=== PATIENT | female | born 1990 | race Caucasian/White ===

== ENCOUNTER 2019-01-27 21:57 | Inpatient (IN) | payer BC ==
[2019-01-27] MEDS ORDERED: Methylergonovine 0.2 MG/1 ML Amp IM PRN (22:19)
[2019-01-27] MEDS ORDERED: Nalbuphine 10 MG/1 ML Vial IVPUSH PRN (22:19)
[2019-01-27] MEDS ORDERED: Misoprostol 200 MCG Tab PO PRN (22:19)
[2019-01-27] MEDS ORDERED: Tranexamic Acid 1,000 MG in Sodium Chloride 0.9% 100 ML IV PRN (22:19)
[2019-01-27] MEDS ORDERED: Sodium Chloride 0.9% 10 ML Syringe FLUSH PRN (22:19)
[2019-01-27] MEDS ORDERED: Carboprost Tromethamine 250 MCG/1 ML Amp IM PRN (22:19)
[2019-01-27] MEDS ORDERED: Lidocaine 1% 50 ML MDV INJECT PRN (22:19)
[2019-01-27] MEDS ORDERED: Sodium Chloride 0.9% 2.5 ML Syringe FLUSH PRN (22:19)
[2019-01-27] MEDS ORDERED: Sodium Chloride 0.9% 10 ML SDV IV PRN (22:19)
[2019-01-27] MEDS ORDERED: Water For Irrigation,Sterile 1,000 ML Container IRR PRN (22:19)
[2019-01-27] MEDS ORDERED: Ondansetron 4 MG/2 ML SDV IV PRN (22:19)
[2019-01-27] MEDS ORDERED: Butorphanol 1 MG/ML SDV IVPUSH PRN (22:19)
[2019-01-27] MEDS ORDERED: Oxytocin/0.9 % Sodium Chloride 30 UNIT/500 ML BAG IV SCH (22:30)
[2019-01-27] MEDS ORDERED: Lactated Ringers 1,000 ML IV SCH (22:30)
[2019-01-27] MEDS ORDERED: Ropivacaine HCl/PF 100 ML ONE (22:49)
--- NOTE | 2019-01-27 23:14 | PCM.PREANE ---
Preanesthetic Assessment - Anesthesia/Transfusion/Family Hx Anesthesia History: Prior Anesthesia Without Reaction Family History of Anesthesia Reaction: No - Review of Systems General: No Symptoms Pulmonary: No Symptoms Cardiovascular: No Symptoms Gastrointestinal: No Symptoms Neurological: No Symptoms Other: Reports: None - Physical Assessment ASA Class: 1 - Lab Values: Laboratory Last Values WBC 18.64 K/uL (4.0-11.0) H 01/27/19 22:32 RBC 4.36 M/uL (4.30-5.90) 01/27/19 22:32 Hgb 13.5 g/dL (12.0-16.0) 01/27/19 22:32 Hct 40.5 % (36.0-46.0) 01/27/19 22:32 MCV 92.9 fL (80.0-98.0) 01/27/19 22:32 MCH 31.0 pg (27.0-32.0) 01/27/19 22:32 MCHC 33.3 g/dL (31.0-37.0) 01/27/19 22:32 RDW Std Deviation 48.6 fl (28.0-62.0) 01/27/19 22:32 RDW Coeff of Jason 14 % (11.0-15.0) 01/27/19 22:32 Plt Count 192 K/uL (150-400) 01/27/19 22:32 MPV 11.00 fL (7.40-12.00) 01/27/19 22:32 Nucleated RBC % 0.0 /100WBC 01/27/19 22:32 Nucleated RBCs # 0 K/uL 01/27/19 22:32 - Allergies Allergies/Adverse Reactions: Allergies Allergy/AdvReac Type Severity Reaction Status Date / Time No Known Allergies Allergy Verified 02/01/14 20:15 - Acknowledgements Anesthesia Type Planned: Epidural Pt an Appropriate Candidate for the Planned Anesthesia: Yes Alternatives and Risks of Anesthesia Discussed w Pt/Guardian: Yes Pt/Guardian Understands and Agrees with Anesthesia Plan: Yes PreAnesthesia Questionnaire - Past Health History Medical/Surgical History: Denies Medical/Surgical History [employer] History: Reports: , Spontaneous - CURRENT (IN HOUSE) MEDS Current Meds: Current Medications Butorphanol Tartrate (Stadol) 1 mg IVPUSH Q1H PRN PRN Reason: Pain Carboprost Tromethamine (Hemabate Ds) 250 mcg IM ASDIRECTED PRN PRN Reason: Post Hemorrhage Lactated Ringer's (Ringers, Lactated) 1,000 mls @ 150 mls/hr IV ASDIRECTED [facility] Last Admin: 01/27/19 22:30 Dose: 999 mls/hr Oxytocin/Sodium Chloride (Oxytocin 30 Unit/500 Ml-Ns) 30 unit in 500 mls @ 999 mls/hr IV TITRATE [facility] Tranexamic Acid 1,000 mg/ (Sodium Chloride) 110 mls @ 660 mls/hr IV ONETIME PRN PRN Reason: Bleeding Lidocaine HCl (Xylocaine 1%) 50 ml INJECT ONETIME PRN PRN Reason: Laceration repair Methylergonovine Maleate (Methergine) 0.2 mg IM ASDIRECTED PRN PRN Reason: Post Hemorrhage Misoprostol (Cytotec) 200 mcg PO ONETIME PRN PRN Reason: Post Hemorrhage Nalbuphine HCl (Nubain) 10 mg IVPUSH Q1H PRN PRN Reason: Pain (severe 7-10) Ondansetron HCl (Zofran) 4 mg IV Q4H PRN PRN Reason: Nausea/Vomiting Sodium Chloride (Saline Flush) 10 ml FLUSH ASDIRECTED PRN PRN Reason: Keep Vein Open Sodium Chloride (Saline Flush) 2.5 ml FLUSH ASDIRECTED PRN PRN Reason: Keep Vein Open Sodium Chloride (Normal Saline) 10 ml IV ASDIRECTED PRN PRN Reason: IV Use Sterile Water (Sterile Water For Irrigation) 1,000 ml IRR ASDIRECTED PRN PRN Reason: delivery Discontinued Medications Ropivacaine (Naropin 0.2%) Confirm Administered Dose 100 mls @ as directed .ROUTE .[facility] Stop: 01/27/19 22:50
--- NOTE | 2019-01-27 23:20 | PCM.PRNOTE ---
- Free Text/Narrative Note: Anes Note 2255 Patient requsts epidural for L&D. Risks and methods were discussed. Sitting position. Level L3-L4, midline approach. Sterile technique, midline approach, chloroprep to lumbar area. sterile fenestrated drape applie.d #17 X 3 7/8 tuohy needle, single attempt with ease. Epidural space easily achieved single attempt with ease, cath threaded 34 cm with ease. Sterile dressing applied. Test 2300 3cc 1.5% lido with epi neg 2303 LOad 10 cc 0.2% ropivicaine in slow divided doses. 2308 pump started same solution at 8 cc hr, 6 cc q 20 min prn bolus. Patient reports excellent analgesia. Time with Patient [id number] Kenan Edge CRNA
[2019-01-28] MEDS ORDERED: Benzocaine/Menthol 20%-0.5% Spray 78 GM Cannister TOP PRN (00:44)
[2019-01-28] MEDS ORDERED: Acetaminophen 500 MG Tab PO PRN (00:44)
[2019-01-28] MEDS ORDERED: Lanolin 100% Cream 7 GM Tube TOP PRN (00:44)
[2019-01-28] MEDS ORDERED: Docusate Sodium 100 MG Cap PO PRN (00:44)
[2019-01-28] MEDS ORDERED: Ibuprofen 400 MG Tab PO PRN (00:44)
[2019-01-28] MEDS ORDERED: Aluminum Hydroxide/Magnesium Hydroxide/Simethicone Susp 30 ML Cup PO PRN (00:44)
[2019-01-28] MEDS ORDERED: Bisacodyl 10 MG Supp RECTAL PRN (00:44)
[2019-01-28] MEDS ORDERED: Witch Hazel Medicated Pads 40/Jar TOP PRN (00:44)
[2019-01-28] MEDS ORDERED: oxyCODONE 5 MG Tab PO PRN (00:44)
--- NOTE | 2019-01-28 00:50 | PCM.OPNOTE ---
- General Post-Op/Procedure Note Date of Surgery/Procedure: 01/28/19 Operative Procedure(s): /IP Findings: Viable female APGARs 9, 9 weight pending> Spontaneous delivery intact placenta with 3V cord Pre Op Diagnosis: 39/2 week IUP. Labor Post-Op Diagnosis: Same Anesthesia Technique: Epidural Primary Surgeon: Sisi Moncada EBL in mLs: 250 Complications: none known Condition: Good Free Text/Narrative:: Dictation [id number]
--- NOTE | 2019-01-28 01:15 | OR ---
SURGEON: Sisi Moncada M.D. DATE OF PROCEDURE: 01/28/2019 PREOPERATIVE DIAGNOSES: 1. 39 and 2/7 weeks' intrauterine . 2. Active labor. POSTOPERATIVE DIAGNOSES: 1. 39 and 2/7 weeks' intrauterine . 2. Active labor. PROCEDURES: Spontaneous vaginal delivery, intact perineum. PRIMARY SURGEON: Sisi Moncada MD. ANESTHESIA: Epidural. ESTIMATED BLOOD LOSS: 250 mL. FINDINGS: Viable female, Apgars 9 at 1 minute and 9 at 5 minutes. Weight is pending. Spontaneous delivery, intact placenta, 3-vessel cord. DISPOSITION: to nursery, mom in LDRP. PROCEDURE DETAILS: Meghan is a 28-year-old G3, P2 at 39 and 2/7 weeks gestational age, who presents on the evening of 01/27/2019 with regular contractions. On initial examination, she was found to be 5 cm, 90% effaced, -1 station. Therefore, she was admitted. Routine labs were drawn, IV hydration was initiated. She is group B strep negative. She is requesting epidural. When she underwent this satisfactorily, became more comfortable and shortly thereafter underwent amniotomy. Clear fluid was returned. The patient quickly progressed to complete, 100% effaced, +2 station, began pushing efforts. She was able to push to a +3 station. I was called for Delivery. Upon my arrival, the patient was placed in modified dorsal lithotomy position, was prepped and draped in the usual aseptic manner. Continued with pushing efforts, was able to deliver to a +5 station, delivered 's head followed by anterior shoulder, posterior shoulder, and remainder of body without difficulty. The infant's oropharynx and nares were bulb suctioned. Cord was clamped x2 and cut after a delay. Cord arterial, cord venous, cord blood sampling obtained. Light pressure was applied while the placenta was delivered spontaneously intact. Vigorous fundal uterine massage was then applied while 30 units of Pitocin was delivered in 500 mL of IV fluid. Upon inspection of cervix, vaginal sidewalls and perineum, these were found to be intact. Uterus remained firm. Sponge count and instrument count were correct. The patient remained in LDRP, infant to nursery. SHEFALI / ISIDRO /[id number]
[2019-01-28] MEDS: Ibuprofen 800 MG Tab PO PRN ×3 (02:45→19:31)
[2019-01-28] MEDS: Acetaminophen 500 MG Tab PO PRN ×2 (02:45→07:59)
--- NOTE | 2019-01-28 14:00 | PCM48HPAN ---
Post Anesthesia Note - EVALUATION WITHIN 48HRS OF ANESTHETIC Vital Signs in Normal Range: Yes Patient Participated in Evaluation: Yes Respiratory Function Stable: Yes Airway Patent: Yes Hydration Status Stable: Yes Pain Control Satisfactory: Yes (denies discomfor) Nausea and Vomiting Control Satisfactory: Yes Mental Status Recovered: Yes Resp Rate: 16 - COMMENTS/OBSERVATIONS Free Text/Narrative:: pt has no complaints at this time
[2019-01-29 07:50] VITALS: BP 96/52
--- NOTE | 2019-01-29 07:50 | PCM.PNPP ---
- General Info Date of Service: 01/29/19 Functional Status: Reports: Pain Controlled, Tolerating Diet, Ambulating - Review of Systems General: Reports: Fatigue. Denies: Fever, Weakness Pulmonary: Denies: Shortness of Breath Cardiovascular: Denies: Chest Pain, Palpitations, Lightheadedness Gastrointestinal: Reports: Flatus. Denies: Abdominal Pain, Nausea, Vomiting Genitourinary: Denies: Flank Pain Musculoskeletal: Reports: No Symptoms Skin: Reports: No Symptoms Neurological: Reports: No Symptoms Psychiatric: Reports: No Symptoms - General Info Date of Service: 01/29/19 - Patient Data Vital Signs - Most Recent: Last Vital Signs Temp 36.3 C 01/29/19 04:07 Pulse 51 L 01/29/19 04:07 Resp 14 01/29/19 04:07 BP 113/59 L 01/29/19 04:07 Pulse Ox 96 01/29/19 04:07 Weight - Most Recent: 72.121 kg Lab Results - Last 24 Hours: Laboratory Results - last 24 hr 01/28/19 Range/Units 13:07 Hgb 12.9 (12.0-16.0) g/dL Hct 38.9 (36.0-46.0) % Med Orders - Current: Current Medications Acetaminophen (Tylenol Extra Strength) 500 mg PO Q4H PRN PRN Reason: Pain Acetaminophen (Tylenol Extra Strength) 1,000 mg PO Q4H PRN PRN Reason: Pain Last Admin: 01/28/19 07:59 Dose: 1,000 mg Al Hydroxide/Mg Hydroxide (Mag-Al Plus) 30 ml PO Q8H PRN PRN Reason: Heartburn Benzocaine/Menthol (Dermoplast Pain Relief 20%-0.5% [place]) 78 gm TOP ASDIRECTED PRN PRN Reason: Perineal Comfort Measure Last Admin: 01/28/19 02:44 Dose: 1 spray Bisacodyl (Dulcolax) 10 mg RECTAL ONETIME PRN PRN Reason: Constipation Carboprost Tromethamine (Hemabate Ds) 250 mcg IM ASDIRECTED PRN PRN Reason: Post Hemorrhage Docusate Sodium (Colace) 100 mg PO BID PRN PRN Reason: Constipation Emollient Ointment (Lansinoh Hpa) 0 gm TOP ASDIRECTED PRN PRN Reason: Sore Nipples Last Admin: 01/28/19 19:31 Dose: 7 gm Lactated Ringer's (Ringers, Lactated) 1,000 mls @ 150 mls/hr IV ASDIRECTED [facility] Last Admin: 01/27/19 22:30 Dose: 999 mls/hr Oxytocin/Sodium Chloride (Oxytocin 30 Unit/500 Ml-Ns) 30 unit in 500 mls @ 999 mls/hr IV TITRATE [facility] Last Admin: 01/28/19 00:32 Dose: 999 mls/hr Tranexamic Acid 1,000 mg/ (Sodium Chloride) 110 mls @ 660 mls/hr IV ONETIME PRN PRN Reason: Bleeding Ibuprofen (Motrin) 400 mg PO Q4H PRN PRN Reason: Pain Ibuprofen (Motrin) 800 mg PO Q6H PRN PRN Reason: Pain Last Admin: 01/28/19 19:31 Dose: 800 mg Methylergonovine Maleate (Methergine) 0.2 mg IM ASDIRECTED PRN PRN Reason: Post Hemorrhage Ondansetron HCl (Zofran) 4 mg IV Q4H PRN PRN Reason: Nausea/Vomiting Oxycodone HCl (Oxycodone) 5 mg PO Q2H PRN PRN Reason: Pain Sodium Chloride (Saline Flush) 10 ml FLUSH ASDIRECTED PRN PRN Reason: Keep Vein Open Sodium Chloride (Saline Flush) 2.5 ml FLUSH ASDIRECTED PRN PRN Reason: Keep Vein Open Sodium Chloride (Normal Saline) 10 ml IV ASDIRECTED PRN PRN Reason: IV Use Sterile Water (Sterile Water For Irrigation) 1,000 ml IRR ASDIRECTED PRN PRN Reason: delivery Witch Judith (Tucks) 1 pad TOP ASDIRECTED PRN PRN Reason: comfort care Last Admin: 01/28/19 02:44 Dose: 1 pad Discontinued Medications Butorphanol Tartrate (Stadol) 1 mg IVPUSH Q1H PRN PRN Reason: Pain Stop: 01/28/19 00:44 Ropivacaine (Naropin 0.2%) Confirm Administered Dose 100 mls @ as directed .ROUTE .[facility] ONE Stop: 01/27/19 22:50 Lidocaine HCl (Xylocaine 1%) 50 ml INJECT ONETIME PRN PRN Reason: Laceration repair Misoprostol (Cytotec) 200 mcg PO ONETIME PRN PRN Reason: Post Hemorrhage Nalbuphine HCl (Nubain) 10 mg IVPUSH Q1H PRN PRN Reason: Pain (severe 7-10) - Interaction Support Person: - Recovery Exam Fundal Tone: Firm Fundal Level: 1 Fingerbreadths Below Umbilicus Fundal Placement: Left Lochia Amount: None Lochia Color: Rubra/Red Perineum Description: Intact, Minimal Bruising/Swelling Episiotomy/Laceration: None Bladder Status: Voiding - Exam General: Alert, Oriented Lungs: Normal Respiratory Effort Cardiovascular: Regular Rate, Regular Rhythm GI/Abdominal Exam: Normal Bowel Sounds, Soft Extremities: Pedal Edema (trace). No: Abdulaziz's Sign Skin: Warm, Dry, Intact Neurological: No New Focal Deficit Psy/Mental Status: Alert, Normal Affect, Normal Mood - Problem List & Annotations (1) Vaginal delivery SNOMED Code(s): 232877874 Code(s): O80 - ENCOUNTER FOR FULL-TERM UNCOMPLICATED DELIVERY Status: Acute Current Visit: No - Problem List Review Problem List Initiated/Reviewed/Updated: Yes - My Orders Last 24 Hours: My Active Orders 01/29/19 07:48 Ready for Discharge [RC] PER UNIT ROUTINE - Assessment Assessment:: PPD 1 status post - Plan Plan:: Patient doing well overall and is ready to go home. Discharge to home. Follow up at [facility] 6 weeks. Infection and bleeding warnings reviewed. Discharge instructions reviewed.
[2019-01-29] MEDS: Ibuprofen 800 MG Tab PO PRN (10:24)
== END 2019-01-29 12:00 | disposition home or self-care (01) | DRG 560 ==
LOC: MW.OB 21:57 → OBSVTOIN 01-28 00:31 → MW.OB 01-28 03:01
PROVIDERS: ADMIT Obstetrics & Gynecology; ATTEND Obstetrics & Gynecology
PROC: 10E0XZZ Delivery of Products of Conception, External Approach (ICD-10-PCS; principal; 2019-01-28)
PROC: 10907ZC Drainage of Amniotic Fluid, Therapeutic from Products of Conception, Via Natural or Artificial Opening (ICD-10-PCS; 2019-01-28)
PROC: 3E0R3BZ Introduction of Anesthetic Agent into Spinal Canal, Percutaneous Approach (ICD-10-PCS; 2019-01-28)
DX: O80 Encounter for full-term uncomplicated delivery (principal); Z3A.39 39 weeks gestation of pregnancy; Z37.0 Single live birth
CPT/HCPCS: 01967; 36415; 51702; 59025; 59409; 82803; 85014; 85018; 85027; 86850; 86900; 86901; A9270-GY; J2590; J7120